=== PATIENT | male | born 1965 | race African-American/Black ===

== ENCOUNTER 2022-11-28 00:37 | Emergency (ER) | payer OTHER, SELFPAY ==
[2022-11-28 00:30] VITALS: PULSE 0; RESP 0; TEMP 33.3; O2SAT 0
--- NOTE | 2022-11-28 00:53 | ED.CPR ---
HPI - CPR General Chief Complaint: Cardiac Arrest/CPR Stated Complaint: CARDIAC ARREST Time Seen by Provider: 11/28/22 00:39 Source: EMS Mode of arrival: EMS Limitations: clinical condition History of Present Illness HPI narrative: 57-year-old with a history of gout was brought in and epigastric from work. As per EMS patient was found on the floor unresponsive was noticed by coworkers who later called EMS on their arrival patient was unresponsive CPR was initiated and ACLS protocol has been followed , patient in asystole throughout his transfer to the ER. Upon arrival to the ER patient was found to be unresponsive with no spontaneous respiration and was asystole on the monitor. Review of Systems Review of Systems: ROS unobtainable: Yes unobtainable due to medical condition Exam Narrative: GENERAL:, well-nourished, unresponsive HEAD: Normocephalic, atraumatic. EYES: Pupils fixed and dilated ENT: Nares clear NECK: Supple. CHEST: No spontaneous respirations HEART: Asystole. ABDOMEN: Soft, nontender, nondistended, normal active bowel sounds. SKIN: Warm, dry, NEURO unresponsive Course Course Emergency Course: Patient was brought DOA, remained asystole throughout his transportation no further CPR was initiated in the ER. Counseled the [id number] and son Discharge Plan Discharge Clinical Impression: Cardiac arrest Patient Disposition: Condition: Follow-up/Referrals: UNKNOWN,DOCTOR [Primary Care Provider] - Time of Disposition: 00:54
--- NOTE | 2022-11-28 03:01 | PC.NURSE ---
Checked on family to offer my condolences. Daughter grabbed this nurses hands and stated that she was so glad I came so she could have closure and peace of mind. She asked me to give her every detail. This nurse invites her and her brother to sit and chat and went over everything from the time he was picked up by EMS to the time of was called. In addition, the process of what would happen next with the traffic investigator to transfer was explained. The daughter embraced this nurse and expressed that she could not thank us enough for going above and beyond.
== END 2022-11-28 00:39 | disposition expired ==
PROVIDERS: Emergency Provider Family Medicine
DX: I46.9 Cardiac arrest, cause unspecified (principal); M10.9 Gout, unspecified
CPT/HCPCS: 99283